=== PATIENT | male | born 1940 | race Caucasian/White ===

== ENCOUNTER → 2023-07-20 06:21 | Day surgery (SDC) | payer MEDICARE, BC, SELFPAY | LOC: GI 06:21 | PROVIDERS: ATTENDING PHYSICIAN Internal Medicine | DX: K22.70 Barrett's esophagus without dysplasia (principal); K44.9 Diaphragmatic hernia without obstruction or gangrene | CPT/HCPCS: 43239; 88305 ==

== ENCOUNTER → 2023-12-22 07:46 | Outpatient (REF) | payer MEDICARE, BC, SELFPAY ==
[2023-12-22 08:42] LABS: Hematocrit 38.2 % (39.0-52.0); Hemoglobin 13.3 g/dL (13.0-18.0); Mean Corp Hgb Conc. 34.8 g/dL (33.0-37.0); Mean Corpuscular Hgb 31.8 pg (27.0-31.0); Mean Corpuscular Volume 91.4 fL (80.0-94.0); Mean Platelet Volume 9.7 fL (7.4-10.4); Platelet Count 164 10^3/uL (130-400); Red Blood Cell Count 4.18 10^6/uL (4.70-6.10); Red Cell Dist. Width 12.8 % (11.5-14.5); White Blood Cell Count 30.3 10^3/uL (4.8-10.8)
[2023-12-22 08:56] LABS: % Basophils 0.4 % (0-2); % Eosinophils 1.1 % (0-6); % Immature Granulocytes 0.1 % (0-0.5); % Lymphocytes 86.6 % (20.5-51.1); % Monocytes 3.2 % (1.7-9.3); % Neutrophils 8.6 % (42.2-75.2); Absolute Basophils 0.1 10^3/uL (0-0.2); Absolute Eosinophils 0.3 10^3/uL (0-0.7); Absolute Lymphocytes 26.2 10^3/uL (1.2-3.4); Absolute Neutrophils 2.6 10^3/uL (1.4-6.5); Nucleated Red Blood Cells % 0 % (-)
== END ==
LOC: REG 07:46
PROVIDERS: ATTENDING PHYSICIAN Internal Medicine Hematology & Oncology; FAMILY PHYSICIAN Family Medicine
DX: C91.10 Chronic lymphocytic leukemia of B-cell type not having achieved remission (principal)
CPT/HCPCS: 36415; 85025

== ENCOUNTER 2024-03-18 12:44 | Observation (INO) | payer MEDICARE, BC, SELFPAY ==
[2024-03-18] VITALS (15 sets, daily range): BP systolic 127–150; BP diastolic 58–82; BMI 19.7; BMI 18.9
[2024-03-18] MEDS: TYLENOL 650 MG PO (08:32)
[2024-03-18 08:43] LABS: Hematocrit 38.4 % (39.0-52.0); Hemoglobin 12.9 g/dL (13.0-18.0); Mean Corp Hgb Conc. 33.6 g/dL (33.0-37.0); Mean Corpuscular Hgb 32.3 pg (27.0-31.0); Mean Corpuscular Volume 96.2 fL (80.0-94.0); Mean Platelet Volume 8.5 fL (7.4-10.4); Platelet Count 166 10^3/uL (130-400); Red Blood Cell Count 3.99 10^6/uL (4.70-6.10); Red Cell Dist. Width 13.1 % (11.5-14.5); White Blood Cell Count 22.4 10^3/uL (4.8-10.8)
--- NOTE | 2024-03-18 08:46 | ED.GENMED ---
History of Present Illness
<Sofy Calderon PA-C - Last Filed: 03/18/24 13:33>
General
Chief Complaint: Weakness
Source: patient and family
Exam Limitations: clinical condition
Time Seen by Provider: 03/18/24 08:08
Nursing documentation reviewed up to this point in time: agreed with
History of Present Illness
History of Present Illness:
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
bladder ca, testicular ca, CLL
here with ams since yesterday
pt was doing some strange things - took his cereal into the bathroom and ate it while on the toilet, got dressed early this morning which is unusula
then while he was walking he suddenly stopped, didn't seem to be listening to his , she tried to get him to take a step back but he just stood there, then was incontinent which is unusual
she got him eventually to get into the bed but wasn't himself
he never was shaking, never fell, and never lost consciousness
he drinks alcohol daily, a few beers
no h/o seizures
he doesn't recallt his
pt says his thinks he is confused but he doesn't think so.
he has had congestion, slight cough, sore throat and felt warm today
Past History
<Sofy Calderon PA-C - Last Filed: 03/18/24 13:33>
Past History
ED Past Medical History: Cancer (Testicular cancer 30 yrs ago.), Other (Blood clot left leg.), Other (Blood in urine 02/2013, resolved on own. Never followed up with Urology. This was before starting Xarelto.) and Other ('lymphatic cancer' with
radiation and chemotherapy [address] Casas. 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
ED Past Surgical History: Other (Blood clot 'cut out of my leg' (left) 25 years ago)
Social History
Tobacco: Non-smoker
Alcohol: Binge drinker
Personal:
Review of Systems
<SANKET Chávez Last Filed: 03/18/24 13:33>
Review of Systems
Allergies reviewed?: Yes
All Other Systems: Not applicable
Phy Exam
<Sofy Calderon PA-C - Last Filed: 03/18/24 13:33>
Physical Exam
Physical Exam:
GENERAL: Alert , in no apparent distress
HEAD: NCAT
EYE: pupils equal and reactive, no nystagmus, no photophobia
NECK: Supple,full rom, nontender
ENT: o/p clr, mmm. Mild pharyngeal erythema
CARDIAC: Regular rate and rhythm . no edema
LUNGS: Clear breath sounds bilaterally, no acute respiratory distress, no wheezes/rales/rhonchi
ABDOMEN: Soft, without focal tenderness, no r/g, no cvat
NEUROLOGICAL: Alert and orientedx 4, cn intact, no facial asymmetry, 5/5 strength in UE/LE, sensation intact, romberg neg, neg pronator drift
SKIN: Warm and dry, skin intact.
MUSCULOSKELETAL: No edema, well perfused.
PSYCH: Normal and appropriate interaction.
Sepsis
<SANKET Chávez Last Filed: 03/18/24 13:33>
Sepsis Screening
Sepsis Assessment: Sepsis
Sepsis Screen
Sepsis Screen: Sepsis
Date: 03/18/24
Time: 13:33
<Claudy Kathleen DO - Last Filed: 03/18/24 16:25>
Sepsis Screen
Sepsis Screen: Sepsis
Date: 03/18/24
Time: 16:25
Course
<SANKET Chávez Last Filed: 03/18/24 13:33>
Orders/Labs/Results
Orders:
Orders
03/18/24 08:08
EKG [Electrocardiogram (*1)] Urgent
Reason for Study: Chest Pain
EKG- Treatment ONCE
03/18/24 08:20
Acetaminophen [Tylenol] 650 mg PO NOW STA
03/18/24 08:21
CR Chest - 2 Views Urgent
Comment:
Reason For Exam: fever, cough, ams
03/18/24 08:25
COVID-19 Antigen Urgent
Source: Nasal Swab
Complete Blood Count/With Diff Urgent
Comprehensive Metabolic Panel Urgent
Lactic Acid Q4H
Comment: CANCEL 2nd LACTIC ACID IF 1st LACTIC ACID IS LESS THAN 2
Influenza A+B Rapid Molecular Urgent
THEODORE Source: Nasal Swab
Specimen Description:
03/18/24 08:45
CT Head W/o Iv Contrast Urgent
Comment:
Reason For Exam: ams x 2 days; stood still today and was incontinen
03/18/24 08:52
0.9% Sodium Chloride 1000 ml [Nss] 1,000 ml IV BOLUS
03/18/24 11:39
Urinalysis Reflex To Culture Urgent
Date Specimen was Collected: 03/18/24
Time Specimen was Collected: 11:33
Urine Microscopic Reflex Cult Urgent
03/18/24 12:27
Admit/Transfer Patient As Directed
Co-Sign Provider:
Level of Care: Observation services
Assign to:: Medical/Surgical
Physician / Group: nick parson
Diagnosis: acute viral syndrome/URTI
Expected length of stay greater than two midnights?: Yes
ELOS- Estimated Length of Stay in days: 1
I certify the patient meets the requirements for IP care: Yes
PRN Pain Medication Management As Directed
May give lesser potent ordered pain med per pt: Yes
preference::
Protocol:: Medication orders for pain may be administered in a
manner that supports deferring to patient preference
when the pt is:
- Requesting an ordered lesser potent pain medication.
Least to most potent pain medications are defined
as: acetaminophen < NSAID < tramadol < opioids
(morphine, oxycodone, hydromorphone).
- Requesting a lesser dose of the same medication IF
ORDERED.
- Requesting a less intrusive route of administration
if both routes are prescribed by the provider (PO <
IV).
03/18/24 12:35
Azithromycin [Zithromax] 250 mg 0.9% Sodium Chloride 250 ml [Nss] 250 ml IV NOW
03/18/24 12:41
Legionella Urinary Antigen Routine
THEODORE Source: Urine
Specimen Description:
Sputum Culture [Respiratory Culture/Gram Stain] Routine
THEODORE Source: Sputum
Specimen Description:
Strep pneumoniae Antigen Routine
THEODORE Source: Urine
Specimen Description:
03/18/24 12:45
0.9% Sodium Chloride 1000 ml [Nss] 1,000 ml IV 75 mls/hr
03/18/24 13:10
Blood Culture Q30M
THEODORE Source: Blood/Venous
Specimen Description:
03/18/24 13:11
Blood Culture Q30M
THEODORE Source: Blood/Venous
Specimen Description:
03/18/24 14:00
CefTRIAXone [Rocephin] 1,000 mg IV Q24H
03/19/24 06:00
Basic Metabolic Panel IN AM
Complete Blood Count/No Diff IN AM
Procalcitonin IN AM
PCT Algorithmm Indication: Respiratory
03/20/24 06:00
Basic Metabolic Panel IN AM
Complete Blood Count/No Diff IN AM
03/21/24 06:00
Basic Metabolic Panel IN AM
Complete Blood Count/No Diff IN AM
03/22/24 06:00
Basic Metabolic Panel IN AM
Complete Blood Count/No Diff IN AM
03/23/24 06:00
Basic Metabolic Panel IN AM
Complete Blood Count/No Diff IN AM
03/24/24 06:00
Basic Metabolic Panel IN AM
Complete Blood Count/No Diff IN AM
Abnormal Lab Results
03/18/24 03/18/24
11:39
WBC 22.4 H 10^3/uL
(4.8-10.8)
RBC 3.99 L 10^6/uL
(4.70-6.10)
Hgb 12.9 L g/dL
(13.0-18.0)
Hct 38.4 L %
(39.0-52.0)
MCV 96.2 H fL
(80.0-94.0)
MCH 32.3 H pg
(27.0-31.0)
Abs Immat Gran (auto) 0.1 H 10^3/uL
(0-0.05)
Absolute Neuts (auto) 6.7 H 10^3/uL
(1.4-6.5)
Absolute Lymphs (auto) 14.7 H 10^3/uL
(1.2-3.4)
Absolute Monos (auto) 0.8 H 10^3/uL
(0.1-0.6)
Neutrophils % 29.9 L %
(42.2-75.2)
Lymphocytes % 65.9 H %
(20.5-51.1)
Sodium 134 L mmol/L
(135-145)
Creatinine 1.4 H mg/dL
(0.7-1.3)
Glucose 146 H mg/dl
(70-99)
Ur Occult Blood Reflex 1+ A
(Negative)
Urine RBC 11-15 A /HPF
(0-2)
Urine Bacteria (Reflex) Few A
(Negative)
03/18/24 08:25
03/18/24 08:25
Vital Signs
Initial and Last Documented VS:
Initial Vital Signs
Pulse Ox
97
03/18/24 08:08
Last Documented Vital Signs
Temp Pulse Resp BP Pulse Ox
99.5 F 87 13 129/65 98
03/18/24 11:32 03/18/24 11:15 03/18/24 11:15 03/18/24 11:00 03/18/24 09:30
<Claudy Kathleen, DO - Last Filed: 03/18/24 16:25>
Orders/Labs/Results
Orders:
Orders
03/18/24 08:08
EKG [Electrocardiogram (*1)] Urgent
Reason for Study: Chest Pain
EKG- Treatment ONCE
03/18/24 08:20
Acetaminophen [Tylenol] 650 mg PO NOW STA
03/18/24 08:21
CR Chest - 2 Views Urgent
Comment:
Reason For Exam: fever, cough, ams
03/18/24 08:25
COVID-19 Antigen Urgent
Source: Nasal Swab
Complete Blood Count/With Diff Urgent
Comprehensive Metabolic Panel Urgent
Lactic Acid Q4H
Comment: CANCEL 2nd LACTIC ACID IF 1st LACTIC ACID IS LESS THAN 2
Influenza A+B Rapid Molecular Urgent
THEODORE Source: Nasal Swab
Specimen Description:
03/18/24 08:45
CT Head W/o Iv Contrast Urgent
Comment:
Reason For Exam: ams x 2 days; stood still today and was incontinen
03/18/24 08:52
0.9% Sodium Chloride 1000 ml [Nss] 1,000 ml IV BOLUS
03/18/24 11:39
Urinalysis Reflex To Culture Urgent
Date Specimen was Collected: 03/18/24
Time Specimen was Collected: 11:33
Urine Microscopic Reflex Cult Urgent
03/18/24 12:27
Admit/Transfer Patient As Directed
Co-Sign Provider:
Level of Care: Observation services
Assign to:: Medical/Surgical
Physician / Group: nick parson
Diagnosis: acute viral syndrome/URTI
Expected length of stay greater than two midnights?: Yes
ELOS- Estimated Length of Stay in days: 1
I certify the patient meets the requirements for IP care: Yes
PRN Pain Medication Management As Directed
May give lesser potent ordered pain med per pt: Yes
preference::
Protocol:: Medication orders for pain may be administered in a
manner that supports deferring to patient preference
when the pt is:
- Requesting an ordered lesser potent pain medication.
Least to most potent pain medications are defined
as: acetaminophen < NSAID < tramadol < opioids
(morphine, oxycodone, hydromorphone).
- Requesting a lesser dose of the same medication IF
ORDERED.
- Requesting a less intrusive route of administration
if both routes are prescribed by the provider (PO <
IV).
03/18/24 12:35
Azithromycin [Zithromax] 250 mg 0.9% Sodium Chloride 250 ml [Nss] 250 ml IV NOW
03/18/24 12:41
Legionella Urinary Antigen Routine
THEODORE Source: Urine
Specimen Description:
Sputum Culture [Respiratory Culture/Gram Stain] Routine
THEODORE Source: Sputum
Specimen Description:
Strep pneumoniae Antigen Routine
THEODORE Source: Urine
Specimen Description:
03/18/24 12:45
0.9% Sodium Chloride 1000 ml [Nss] 1,000 ml IV 75 mls/hr
03/18/24 13:10
Blood Culture Q30M
THEODORE Source: Blood/Venous
Specimen Description:
03/18/24 13:11
Blood Culture Q30M
THEODORE Source: Blood/Venous
Specimen Description:
03/18/24 14:00
CefTRIAXone [Rocephin] 1,000 mg IV Q24H
03/19/24 06:00
Basic Metabolic Panel IN AM
Complete Blood Count/No Diff IN AM
Procalcitonin IN AM
PCT Algorithmm Indication: Respiratory
03/20/24 06:00
Basic Metabolic Panel IN AM
Complete Blood Count/No Diff IN AM
03/21/24 06:00
Basic Metabolic Panel IN AM
Complete Blood Count/No Diff IN AM
03/22/24 06:00
Basic Metabolic Panel IN AM
Complete Blood Count/No Diff IN AM
03/23/24 06:00
Basic Metabolic Panel IN AM
Complete Blood Count/No Diff IN AM
03/24/24 06:00
Basic Metabolic Panel IN AM
Complete Blood Count/No Diff IN AM
Abnormal Lab Results
03/18/24 03/18/24
08:25 11:39
WBC 22.4 H 10^3/uL
(4.8-10.8)
RBC 3.99 L 10^6/uL
(4.70-6.10)
Hgb 12.9 L g/dL
(13.0-18.0)
Hct 38.4 L %
(39.0-52.0)
MCV 96.2 H fL
(80.0-94.0)
MCH 32.3 H pg
(27.0-31.0)
Abs Immat Gran (auto) 0.1 H 10^3/uL
(0-0.05)
Absolute Neuts (auto) 6.7 H 10^3/uL
(1.4-6.5)
Absolute Lymphs (auto) 14.7 H 10^3/uL
(1.2-3.4)
Absolute Monos (auto) 0.8 H 10^3/uL
(0.1-0.6)
Neutrophils % 29.9 L %
(42.2-75.2)
Lymphocytes % 65.9 H %
(20.5-51.1)
Sodium 134 L mmol/L
(135-145)
Creatinine 1.4 H mg/dL
(0.7-1.3)
Glucose 146 H mg/dl
(70-99)
Ur Occult Blood Reflex 1+ A
(Negative)
Urine RBC 11-15 A /HPF
(0-2)
Urine Bacteria (Reflex) Few A
(Negative)
03/18/24 08:25
03/18/24 08:25
Vital Signs
Initial and Last Documented VS:
Initial Vital Signs
Pulse Ox
97
03/18/24 08:08
Last Documented Vital Signs
Temp Pulse Resp BP Pulse Ox
99.5 F 87 13 129/65 98
03/18/24 11:32 03/18/24 11:15 03/18/24 11:15 03/18/24 11:00 03/18/24 09:30
<Sofy Calderon PA-C - Last Filed: 03/18/24 13:33>
MDM/Problems Addressed
Differential Diagnosis Includes:
TME, URI, covid, flu, uti
lessl ikely meningitis
MDM/Problems Addressed:
83 y/o M
from home
h/o CLL
mild dmentia according to
acting a little strange since yesterday, did and said a fe wthings that seemed off to her, that she told me about
then this morning he had an episode while walking that he stood still and seemed not to be responding or hearing her when she was trying to help him move back into the chair. he urinated on self, never lost consciousness;
pt doesn't recall this incident
no seizure history
seems mildly confused/poor memory but nonfocal neuro exam
febrile
like the source of the AMS
but no source for fever identified; though highly suspect viral syndrome, pt is congested and coughing
cxr indep reviewed, neg
lactate normal
wbc chornically elevated due to CLL
admit
<Sofy Calderon PA-C - Last Filed: 03/18/24 13:33>
*Critical Care Note
Total Time (30-74mins, 75-104mins- exclusive of procedures): Not Applicable
ED Attending Note
<Sofy Calderon PA-C - Last Filed: 03/18/24 13:33>
-
Portions of this chart may have been created with voice recognition software.� Occasional wrong word or��sound alike� substitutions may have occurred due to the inherent limitations of voice recognition software.
<Claudy Kathleen DO - Last Filed: 03/18/24 16:25>
ED Attending Note
Patient seen and examined by attending physician: Yes
I performed a history and physical exam of patient and discussed management with resident, I reviewed resident's note and agree with documented findings and plan of care.: Yes
ED Attending Note:
Seen with VITALIY, 83-year-old male CLL presents with fatigue upper respiratory symptoms
Discharge Plan
Departure
Patient Disposition: Admit
Date of Disposition: 03/18/24
Time of Disposition: 10:26
Admit to: Med/Surg
Presentation/result/management discussed w/ accepting MD/DO: Hospitalist
Patient with high blood pressure during this ER visit?: No
Condition: Fair
Covid-19: Negative COVID-19
Discharge Problem:
Fever, AMS (altered mental status)
Interventions
Interventions:
*General Assessment Last Done: 03/18/24 08:08
*Neglect/Abuse Screening Last Done: 03/18/24 08:08
ED- Fall Risk Assessment Last Done: 03/18/24 08:08
*ED COVID-19 Vaccine History Last Done: 03/18/24 08:08
ED- Cardiac Assessment Last Done: 03/18/24 08:08
ED- Neurological Assessment Last Done: 03/18/24 08:08
ED- Pulmonary Assessment Last Done: 03/18/24 08:08
[2024-03-18 08:52] LABS: COVID-19 Antigen Negative (Negative)
[2024-03-18 08:59] LABS: ALT (SGPT) < 10 U/L (0-50); AST (SGOT) 25 U/L (17-59); Albumin 4.3 g/dl (3.5-5.0); Alkaline Phosphatase 43 U/L (38-126); Blood Urea Nitrogen 16 mg/dl (9-20); Calcium 8.9 mg/dl (8.4-10.2); Carbon Dioxide 28 mmol/L (22-30); Chloride 100 mmol/L (98-107); Estimated Creatinine Clearance 40 ml/min; Glucose 146 mg/dl (70-99); Potassium 4.4 mmol/L (3.5-5.1); Sodium 134 mmol/L (135-145); Total Bilirubin 0.7 mg/dl (0.2-1.3); Total Protein 6.9 g/dl (6.3-8.2); eGFR 50.49
[2024-03-18 09:01] LABS: Lactic Acid 1.4 mmol/L (0.7-2.0)
[2024-03-18 09:11] LABS: % Basophils 0.2 % (0-2); % Eosinophils 0.1 % (0-6); % Immature Granulocytes 0.3 % (0-0.5); % Lymphocytes 65.9 % (20.5-51.1); % Monocytes 3.6 % (1.7-9.3); % Neutrophils 29.9 % (42.2-75.2); Absolute Basophils 0.1 10^3/uL (0-0.2); Absolute Immature Granulocytes 0.1 10^3/uL (0-0.05); Absolute Lymphocytes 14.7 10^3/uL (1.2-3.4); Absolute Monocytes 0.8 10^3/uL (0.1-0.6); Absolute Neutrophils 6.7 10^3/uL (1.4-6.5); Nucleated Red Blood Cells % 0 % (-)
[2024-03-18] MEDS: NSS 1000 IV ×2 (09:27→13:25)
[2024-03-18 11:57] LABS: Urine Albumin Trace (Neg - Trace); Urine Bilirubin Negative (Negative); Urine Character Clear (Clear); Urine Color Yellow; Urine Glucose Negative (Negative); Urine Ketone Negative (Negative); Urine Leukocyte Negative (Negative); Urine Nitrite Negative (Negative); Urine Occult Blood 1+ (Negative); Urine Urobilinogen Negative (Neg - 1+)
[2024-03-18 12:10] LABS: Urine Granular Cast 0-2 /LPF (0); Urine Mucus Few
[2024-03-18 12:12] LABS: Urine Bacteria Few (Negative)
[2024-03-18] MEDS: ZITHROMAX 252.5 MG IV (13:23)
--- NOTE | 2024-03-18 13:27 | CM ---
Addendum entered by Valorie Hernandez 03/18/24 13:39:
Referral sent to [facility] liaison, Ju Dozier for further resources. in agreement to plan. CM also gave information about the different types of dementia, as requested.
Original Note:
Patient is here for weakness and confusion. Consult placed because is needing more resources to educate herself and learn how to work with patient's forgetfulness and dementia-like symptoms. Bedside RN and CM explained the course of dementia.
became tearful and wants her to be safe and in the hands of the best care.
JARAMILLO form signed. Patient is independent, but owns several canes. drives. They live in [place] 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 No +SDOH's.
ANTICIPATED D/C PLAN: Home with , when medically cleared.
--- NOTE | 2024-03-18 14:03 | HPS.HSE ---
Family Physician
-
Family Physician: Deena Messer MD
Chief Complaint
-
sore throat, confusion
History of Present Illness
83 male history of CLL, VTE on Xarelto, Xarelto presenting with a 1 day history of worsening confusion and abnormal activity that is associated with sore throat coughing congestion. Per was in usual state of health prior to yesterday when she
noted that he was waking up early getting ready early and had his bowl of cereal while sitting on the toilet. Per has baseline confusion. States everyone in the house has been sick with a cold. Fever in the ED 100.5. Chronically elevated
white count which is expected as history of CLL. Hyponatremia 134 creat 1.4 with a baseline of around 1.0-1.1. Chest x-ray without cardiopulmonary. COVID and flu negative.
Medical History
Past Medical History
Past Medical History: Reports Cancer
Past Surgical History: Reports None
Social History
Tobacco: Non-smoker
Alcohol: None
Family History
Family History: Not pertinent
Allergies / Home Medications
Allergies reflects when Allergies were last updated in [facility].
Home Medications with original date entered in [facility]
Allergy/Medication List:
Allergies
Allergy/AdvReac Type Severity Reaction Status Date / Time
No Known Drug Allergies Allergy - Verified 03/18/24 08:22
bee stings Allergy Anaphylaxis Uncoded 03/18/24 08:22
Home Medications
rivaroxaban 20 mg tablet (Xarelto) 20 mg PO QPM 05/20/20
vovfkfrcg-OWY-VS-acetaminophen 7.5 mg-60 [id number]/30mL oral liqd 30 ml PO HSPRN PRN cold symptoms 03/18/24
famotidine 40 mg tablet 40 mg PO HS 03/18/24
guaifenesin 600 mg tablet, extended release 12 hr (Mucinex) 600 mg PO DAILYPRN PRN congestion 03/18/24
pantoprazole 40 mg tablet,delayed release 40 mg PO DAILY 03/18/24
pseudoephedrine-ibuprofen 30 mg-200 mg tablet 2 tab PO DAILYPRN PRN cold symptoms 03/18/24
Review of Systems
-
A 12 point ROS was completed and negative except as noted: Yes
Physical Exam
Vital Signs
Vital Signs
Temp Pulse Resp BP Pulse Ox
99.5 F 87 13 129/65 98
03/18/24 11:32 03/18/24 11:15 03/18/24 11:15 03/18/24 11:00 03/18/24 09:30
Physical Exam
General: No Apparent Distress and Comfortable
HEENT: NormoCephalic and Anicteric
Respiratory: Clear
Cardiac: S1/S2 and Regular Rhythm
GI: Soft, Non Tender, Non Distended and Normal Bowel Sounds
Musculoskeletal: No Clubbing and No Cyanosis
Skin: Warm and Dry
Neuro: Awake, Alert, Oriented and AO x 3
Psych: Calm
Laboratory Results
-
03/18/24 08:25
03/18/24 08:25
Laboratory Results
Lactic Acid Cancelled 03/18/24 12:30
Total Bilirubin 0.7 mg/dl (0.2-1.3) 03/18/24 08:25
AST 25 U/L (17-59) 03/18/24 08:25
ALT < 10 U/L (0-50) 03/18/24 08:25
Alkaline Phosphatase 43 U/L (38-126) 03/18/24 08:25
Impression/Plan
-
Acute viral syndrome/upper respite tract infection
-COVID/flu negative
-Check Pro-Jay
-Because there is evidence of sepsis we will provide IV antibiotics to cover for CAP. If Pro-Jay negative then would discontinue monitor off
-Then would just provide supportive care with antipyretics mucolytic's and MDI
Sepsis, likely source pulmonary
-See number 1
DARRELL
-Slight bump, likely related to poor po intake over the alst one day
-Gentle IV hydration
-Encourage po intake
-Check BMP in the AM
-If worse then check rbus, urine studies
-Monitor UOP
-Avoid nephrotoxins and hypotension
Normocytic anemia
-Outpatient follow-up age-appropriate cancer screening
Hyponatremia
-Encourage p.o. and
CLL
-Outpatient oncology follow-up
VTE
-Continue Xarelto
GERD
-Continue PPI and H2 charles
[2024-03-18] MEDS: ROCEPHIN 1000 MG IV (15:58)
[2024-03-18] MEDS: STERILE WATER FOR INJECTION 10 ML IV (15:58)
--- NOTE | 2024-03-18 19:55 | PTCARENOTE ---
Pt from ED A+OX2 confused to time at times. VSS pox 98% RA. Pt oriented to room and POC, bed alarm in place.
[2024-03-18] MEDS: MUCINEX 600 MG PO (20:12)
[2024-03-18] MEDS: XARELTO 20 MG PO (20:12)
[2024-03-18] MEDS: PEPCID 20 MG PO (21:23)
[2024-03-19] MEDS: NSS 1000 IV (04:02)
[2024-03-19 07:30] VITALS: BP 147/78
[2024-03-19 07:48] LABS: Hematocrit 33.6 % (39.0-52.0); Hemoglobin 11.3 g/dL (13.0-18.0); Mean Corp Hgb Conc. 33.6 g/dL (33.0-37.0); Mean Corpuscular Hgb 31.9 pg (27.0-31.0); Mean Corpuscular Volume 94.9 fL (80.0-94.0); Mean Platelet Volume 8.7 fL (7.4-10.4); Platelet Count 146 10^3/uL (130-400); Red Blood Cell Count 3.54 10^6/uL (4.70-6.10); Red Cell Dist. Width 12.9 % (11.5-14.5); White Blood Cell Count 19.4 10^3/uL (4.8-10.8)
[2024-03-19 08:16] LABS: Procalcitonin 0.06 ng/ml (0.0-0.25)
[2024-03-19 08:20] LABS: Blood Urea Nitrogen 12 mg/dl (9-20); Calcium 8.5 mg/dl (8.4-10.2); Carbon Dioxide 24 mmol/L (22-30); Chloride 102 mmol/L (98-107); Estimated Creatinine Clearance 53 ml/min; Glucose 98 mg/dl (70-99); Potassium 3.8 mmol/L (3.5-5.1); Sodium 132 mmol/L (135-145); eGFR > 60.00
[2024-03-19] MEDS: PROTONIX 40 MG PO (09:28)
[2024-03-19] MEDS: MUCINEX 600 MG PO (09:29)
--- NOTE | 2024-03-19 13:09 | W.DS.TRANS ---
DC Summary - [facility]
-
Discharge Instructions:
Discharge Diagnosis/Procedures Acute viral syndrome
Diet Regular
Instructions:
Stand-Alone Forms:
Changes to Home Medications: No
Discharge Medications:
DC Medications w/original date entered in [facility]
rivaroxaban 20 mg tablet (Xarelto) 20 mg PO QPM Blood Clot Prevention/Tx 05/20/20
famotidine 40 mg tablet 40 mg PO HS Gastrointestinal Issue 03/18/24
guaifenesin 600 mg tablet, extended release 12 hr (Mucinex) 600 mg PO DAILYPRN PRN congestion 03/18/24
pantoprazole 40 mg tablet,delayed release 40 mg PO DAILY GERD 03/18/24
Home Medication Changes
Pending Results: No
[2024-03-19 13:26] VITALS: BP 145/75
== END 2024-03-19 14:20 | disposition home or self-care (01) ==
LOC: 4 EAST ACU 12:44
PROVIDERS: Emergency Medicine; Physician Assistant; ADMITTING PHYSICIAN Hospitalist; ATTENDING PHYSICIAN Internal Medicine; EMERGENCY PHYSICIAN Emergency Medicine; FAMILY PHYSICIAN Family Medicine
DX: J06.9 Acute upper respiratory infection, unspecified (principal); R53.1 Weakness; C91.10 Chronic lymphocytic leukemia of B-cell type not having achieved remission; N17.9 Acute kidney failure, unspecified; E86.0 Dehydration; I73.9 Peripheral vascular disease, unspecified; R32 Unspecified urinary incontinence; R41.0 Disorientation, unspecified; R05.9 Cough, unspecified; J02.9 Acute pharyngitis, unspecified; E87.1 Hypo-osmolality and hyponatremia; A41.9 Sepsis, unspecified organism; D64.9 Anemia, unspecified; K21.9 Gastro-esophageal reflux disease without esophagitis; R94.31 Abnormal electrocardiogram [ECG] [EKG]; Z86.718 Personal history of other venous thrombosis and embolism; Z79.01 Long term (current) use of anticoagulants; Z85.47 Personal history of malignant neoplasm of testis; Z85.51 Personal history of malignant neoplasm of bladder; Z91.030 Bee allergy status; Z11.52 Encounter for screening for COVID-19
CPT/HCPCS: 70450; 71046; 80048; 80053; 81003; 81015; 83605; 84145; 85025; 85027; 87040; 87449; 87502; 87811; 87899; 93005; 96360; 99285; G0378

== ENCOUNTER → 2024-04-12 07:40 | Outpatient (REF) | payer MEDICARE, BC, SELFPAY ==
[2024-04-12 09:26] LABS: Hematocrit 40.8 % (39.0-52.0); Hemoglobin 13.6 g/dL (13.0-18.0); Mean Corp Hgb Conc. 33.3 g/dL (33.0-37.0); Mean Corpuscular Hgb 31.6 pg (27.0-31.0); Mean Corpuscular Volume 94.9 fL (80.0-94.0); Mean Platelet Volume 9.4 fL (7.4-10.4); Platelet Count 186 10^3/uL (130-400); Red Cell Dist. Width 12.9 % (11.5-14.5); White Blood Cell Count 26.8 10^3/uL (4.8-10.8)
[2024-04-12 10:41] LABS: % Basophils 0.5 % (0-2); % Immature Granulocytes 0.1 % (0-0.5); % Lymphocytes 86.3 % (20.5-51.1); % Monocytes 2.3 % (1.7-9.3); % Neutrophils 9.8 % (42.2-75.2); Absolute Basophils 0.1 10^3/uL (0-0.2); Absolute Eosinophils 0.3 10^3/uL (0-0.7); Absolute Lymphocytes 23.2 10^3/uL (1.2-3.4); Absolute Monocytes 0.6 10^3/uL (0.1-0.6); Absolute Neutrophils 2.6 10^3/uL (1.4-6.5); Nucleated Red Blood Cells % 0 % (-)
[2024-04-12 11:01] LABS: ALT (SGPT) < 10 U/L (0-50); AST (SGOT) 28 U/L (17-59); Albumin 4.8 g/dl (3.5-5.0); Alkaline Phosphatase 53 U/L (38-126); Blood Urea Nitrogen 20 mg/dl (9-20); Calcium 9.5 mg/dl (8.4-10.2); Carbon Dioxide 26 mmol/L (22-30); Chloride 100 mmol/L (98-107); Glucose 98 mg/dl (70-99); Potassium 4.1 mmol/L (3.5-5.1); Sodium 138 mmol/L (135-145); Total Bilirubin 0.5 mg/dl (0.2-1.3); Total Protein 7.6 g/dl (6.3-8.2); eGFR > 60.00
[2024-04-12 11:31] LABS: TSH 3.86 uIU/ml (0.47-4.68)
[2024-04-12 11:50] LABS: Vitamin B12 657 pg/ml (239-931)
== END ==
LOC: REG 07:40
PROVIDERS: ATTENDING PHYSICIAN Family Medicine
DX: Z00.00 Encounter for general adult medical examination without abnormal findings (principal); R41.3 Other amnesia; C91.10 Chronic lymphocytic leukemia of B-cell type not having achieved remission; Z85.51 Personal history of malignant neoplasm of bladder; B34.9 Viral infection, unspecified
CPT/HCPCS: 36415; 80053; 82607; 84443; 85025

== ENCOUNTER → 2024-10-24 15:59 | Outpatient (REF) | payer MEDICARE, BC, SELFPAY ==
[2024-10-24 17:00] LABS: Urine Character Clear (Clear)
[2024-10-24 17:14] LABS: Urine Red Blood Cell 0-2 /HPF (0-2); Urine Squamous Cell 0-2 /LPF (Few)
== END ==
LOC: CLAB 15:59
PROVIDERS: ATTENDING PHYSICIAN Specialist
DX: R31.1 Benign essential microscopic hematuria (principal)
CPT/HCPCS: 81003; 81015

== ENCOUNTER → 2024-10-26 08:28 | Outpatient (REF) | payer MEDICARE, BC, SELFPAY | LOC: HWRAD 08:28 | PROVIDERS: ATTENDING PHYSICIAN Specialist; FAMILY PHYSICIAN Family Medicine | DX: R10.84 Generalized abdominal pain (principal) | CPT/HCPCS: 74176 ==

== ENCOUNTER → 2024-12-19 08:46 | Outpatient (REF) | payer MEDICARE, BC, SELFPAY ==
[2024-12-19 10:06] LABS: Hematocrit 37.1 % (39.0-52.0); Hemoglobin 12.7 g/dL (13.0-18.0); Mean Corp Hgb Conc. 34.2 g/dL (33.0-37.0); Mean Corpuscular Volume 94.9 fL (80.0-94.0); Platelet Count 179 10^3/uL (130-400); Red Cell Dist. Width 13.1 % (11.5-14.5)
[2024-12-19 10:30] LABS: ALT (SGPT) < 10 U/L (0-50); AST (SGOT) 23 U/L (17-59); Albumin 4.3 g/dl (3.5-5.0); Alkaline Phosphatase 42 U/L (38-126); Blood Urea Nitrogen 22 mg/dl (9-20); Calcium 9.4 mg/dl (8.4-10.2); Carbon Dioxide 24 mmol/L (22-30); Chloride 106 mmol/L (98-107); Glucose 97 mg/dl (70-99); Potassium 4.4 mmol/L (3.5-5.1); Sodium 136 mmol/L (135-145); Total Protein 7.1 g/dl (6.3-8.2); eGFR > 60.00
[2024-12-19 10:37] LABS: Urine Character Clear (Clear)
[2024-12-19 10:43] LABS: TSH 2.22 uIU/ml (0.47-4.68)
[2024-12-19 11:02] LABS: Vitamin B12 579 pg/ml (239-931)
[2024-12-19 11:04] LABS: Urine White Cell 0-2 /HPF (0-5)
[2024-12-19 12:11] LABS: Nucleated Red Blood Cells % 0.1 % (-)
== END ==
LOC: REG 08:46
PROVIDERS: ATTENDING PHYSICIAN Internal Medicine Hematology & Oncology; FAMILY PHYSICIAN Family Medicine
DX: Z00.00 Encounter for general adult medical examination without abnormal findings (principal); R41.3 Other amnesia; C91.10 Chronic lymphocytic leukemia of B-cell type not having achieved remission; Z85.51 Personal history of malignant neoplasm of bladder
CPT/HCPCS: 36415; 80053; 81003; 81015; 82607; 84443; 85025